=== PATIENT | male | born 1970 | race Caucasian/White ===

== ENCOUNTER 2018-04-24 13:24 | Emergency (ER) | payer OTHER ==
[~2018-04-24 13:24] MED LIST: HYDR30CR10 TP
--- NOTE | 2018-04-24 13:25 | ER Report ---
History and Physical Time Seen By MD: 13:25 HPI/ROS CHIEF COMPLAINT: Fall, headache HISTORY OF PRESENT ILLNESS: Patient is a 47-year-old male here with complaints of headache after a fall and positive loss of consciousness of approximately 30 seconds. Patient reports that he was playing soccer indoors when he slipped and fell backwards striking his occiput on the indoor turf floor. He reports having initial episode of nausea, seeing stars which has since resolved. Patient does have complaints of midline cervical tenderness, soreness in his jaw. Patient is otherwise alert and oriented with no focal neurological deficits, weakness paresthesias. REVIEW OF SYSTEMS: Constitutional: No fever, no chills. Eyes: No discharge. ENT: No sore throat. Cardiovascular: No chest pain, no palpitations. Respiratory: No cough, no shortness of breath. Gastrointestinal: No abdominal pain, no vomiting. Genitourinary: No hematuria. Musculoskeletal: + c-spine midline tenderness Skin: No rashes. Neurological:+ headache, no focal neuro deficits Allergies: Coded Allergies: No Known Drug Allergies (Unverified , 04/24/18) Home Meds Discontinued Scripts Hydrocortisone 2.5 % 30 GM CREAM (Hydrocortisone 2.5 % 30 GM CREAM) 2.5 % Cream.appl, 1 CADEN TP BID for 30 Days, #1 TUBE 0 Refills Prov:TIFFANY MCNULTY Yudy NPC 01/01/18 Constitutional Vital Sign - Last 24 Hours 04/24/18 04/24/18 04/24/18 13:25 13:30 14:45 Temp 97.6 Pulse 65 65 60 Resp 16 B/P (MAP) 121/92 121/92 (102) 118/82 (94) Pulse Ox 94 91 93 O2 Delivery Room Air Physical Exam General Appearance: The patient is alert, has no immediate need for airway protection and no signs of toxicity. NAD Eyes: Pupils equal and round no pallor or injection. ENT, Mouth: Mucous membranes are moist. Respiratory: There are no retractions, lungs are clear to auscultation. Cardiovascular: Regular rate and rhythm. Gastrointestinal: Abdomen is soft and non tender, no masses, bowel sounds normal. Neurological: No focal neuro deficits Skin: Warm and dry, no rashes. Musculoskeletal: Neck is supple non tender. Extremities are nontender, nonswollen and have full range of motion. DIFFERENTIAL DIAGNOSIS: After history and physical exam differential diagnosis was considered for concussion, fracture, contusion, ICH Medical Decision Making EKG/Imaging Imaging EXAMINATION: CT Cervical spine without intravenous contrast HISTORY: Fall COMPARISON: None. TECHNIQUE: Axial images were obtained from the skull base through the upper thoracic spine without IV contrast administration. Coronal and sagittal reformatted images were generated from the axial source data. One of the following dose optimization techniques was utilized in the performance of this exam: automated exposure control; adjustment of the mA and/or kV according to patient size; or use of iterative reconstruction technique. Specific details can be referenced in the facility's radiology CT exam operational policy. FINDINGS: Vertebral bodies and posterior elements: Normal cervical vertebral body heights. Mild T1 and T2 wedge compression deformities are age-indeterminate but favored to be chronic. No cervical spine fracture identified. Alignment: Slight retrolisthesis of C5 on C6. Disc Spaces: C5-6 uncovertebral arthropathy. Soft tissues: Normal. Visualized upper chest: Normal. IMPRESSION: 1. No acute cervical spine abnormality. 2. Mild age-indeterminate T1 and T2 wedge compression deformities are favored to be chronic. If there is concern for acute wedge compression fractures at these levels MR could be utilized for further characterization. Head CT scan without contrast HISTORY: Fall COMPARISONS: None TECHNIQUE: Non-contrast head CT was performed with sagittal and coronal reformations. One of the following dose optimization techniques was utilized in the performance of this exam: automated exposure control; adjustment of the mA and/or kV according to patient size; or use of iterative reconstruction technique. Specific details can be referenced in the facility's radiology CT exam operational policy. FINDINGS: There is no intracranial hemorrhage, hydrocephalus or midline shift. The basal cisterns, owen-white differentiation, and convexity sulci are maintained. Normal orbital soft tissues. The mastoid air cells are clear. The paranasal sinuses are clear. The osseous structures are normal. IMPRESSION: No acute intracranial abnormality. ED Course/Re-evaluation ED Course Patient is a 47-year-old male here status post fall with loss of consciousness and head trauma while playing soccer indoors. Patient reports approximately 32nd loss of consciousness after falling backwards and striking his occiput on the ground. Patient reports that his symptoms of nausea and headache seemed to be improving. CT imaging of the head and C-spine were completed and were remarkable only for a suspected chronic compression fracture. Upon reevaluation the patient, he was not tender at the site of the reported findings. I gave the patient concussion precautions and advised him to follow up with his PCP in the next couple days or to return promptly if symptoms worsen if he developed any neurological findings. Patient was stable at time of discharge. Decision to Disposition Date: Apr 25, 2018 Decision to Disposition Time: 14:15 Depart Departure Latest Vital Signs Vital Signs Date Time Temp Pulse Resp B/P (MAP) Pulse Ox O2 Delivery O2 Flow Rate FiO2 04/24/18 14:45 60 118/82 (94) 93 04/24/18 13:25 97.6 16 Room Air Impression: Primary Impression: Fall Additional Impression: Concussion Condition: Improved Disposition: HOME OR SELF-CARE New Scripts No Active Prescriptions or Reported Meds Patient Instructions: Concussion (ED) Additional Instructions: Please drink plenty of water. Your diagnoses today with a concussion, please see attached information for concussion management. Please return promptly if you develop worsening headache, visual disturbances, weakness, numbness, nausea, vomiting. Problem Qualifiers SAIGE AQUINO DO Apr 24, 2018 13:25
--- NOTE | 2018-04-24 14:26 | RADIOLOGY IMAGING REPORT ---
FACILITY: [facility] PATIENT NAME: Handy Robin : 1970 MR: [id number] V: [id number] EXAM DATE: ORDERING PHYSICIAN: SAIGE AQUINO TECHNOLOGIST: Location: [facility] - [place] Patient: Handy Robin : 1970 Visit/Account:[id number] Date of Sevice: 04/24/[address] scan without contrast HISTORY: Fall COMPARISONS: None TECHNIQUE: Non-contrast head CT was performed with sagittal and coronal reformations. One of the following dose optimization techniques was utilized in the performance of this exam: autom ated exposure control; adjustment of the mA and/or kV according to patient size; or use of iterative reconstruction technique. Specific details can be referenced in the facility's radiology CT exam ope rational policy. FINDINGS: There is no intracranial hemorrhage, hydrocephalus or midline shift. The basal cisterns, owen-white differentiation, and convexity sulci are maintained. Normal orbital soft tissues. The mastoid air cells are clear. The paranasal sinuses are clear. The osseous structures are normal . IMPRESSION: No acute intracranial abnormality. Report Dictated By: Ric Verdugo MD at 04/24/2018 2:18 PM Report E-Signed By: Ric Verdugo MD at 04/24/2018 2:21 PM WSN:[email or web address]
--- NOTE | 2018-04-24 14:30 | RADIOLOGY IMAGING REPORT ---
FACILITY: [facility] PATIENT NAME: Handy Robin : 1970 MR: [id number] V: [id number] EXAM DATE: ORDERING PHYSICIAN: SAIGE AQUINO TECHNOLOGIST: Location: [facility] - [place] Patient: Handy Robin : 1970 Visit/Account:[id number] Date of Sevice: 04/24/2018 EXAMINATION: CT Cervical spine without intravenous contrast HISTORY: Fall COMPARISON: None. TECHNIQUE: Axial images were obtained from the skull base through the upper thoracic spine without I V contrast administration. Coronal and sagittal reformatted images were generated from the axial sour ce data. One of the following dose optimization techniques was utilized in the performance of this exam: autom ated exposure control; adjustment of the mA and/or kV according to patient size; or use of iterative reconstruction technique. Specific details can be referenced in the facility's radiology CT exam ope rational policy. FINDINGS: Vertebral bodies and posterior elements: Normal cervical vertebral body heights. Mild T1 and T2 wedge compression deformities are age-indeterminate but favored to be chronic. No cervical spine fracture identified. Alignment: Slight retrolisthesis of C5 on C6. Disc Spaces: C5-6 uncovertebral arthropathy. Soft tissues: Normal. Visualized upper chest: Normal. IMPRESSION: 1. No acute cervical spine abnormality. 2. Mild age-indeterminate T1 and T2 wedge compression deformities are favored to be chronic. If there is concern for acute wedge compression fractures at these levels MR could be utilized for further ch aracterization. Report Dictated By: Ric Verdugo MD at 04/24/2018 2:21 PM Report E-Signed By: Ric Verdugo MD at 04/24/2018 2:25 PM WSN:[email or web address]
[2018-04-24 14:45] VITALS: BP 118/82
== END 2018-04-24 14:47 | disposition home or self-care (01) ==
LOC: ER 13:26
DX: S06.0X1A Concussion with loss of consciousness of 30 minutes or less, initial encounter (principal); W01.198A Fall on same level from slipping, tripping and stumbling with subsequent striking against other object, initial encounter; Y93.66 Activity, soccer
CPT/HCPCS: 70450; 72125; 99284; L0172